=== PATIENT | female | born 1975 | race Caucasian/White ===

== ENCOUNTER 2019-01-09 16:22 | Emergency (ER) | payer MEDICAID ==
[2019-01-09] MEDS ORDERED: Lidocaine 1% 10 ML MDV INJECT ONE (17:48)
[2019-01-09] MEDS ORDERED: Doxycycline 100 MG Cap PO ONE (18:17)
--- NOTE | 2019-01-09 18:17 | EDM.PDOC ---
ED HPI GENERAL MEDICAL PROBLEM - General Chief Complaint: Skin Complaint Stated Complaint: L THUMB INFECTION Time Seen by Provider: 01/09/19 17:21 Source of Information: Reports: Patient History Limitations: Reports: No Limitations - History of Present Illness INITIAL COMMENTS - FREE TEXT/NARRATIVE: 43 yo F comes in today for infected L thumb. She states she has had a similar infection in the past with another finger, which ended up being positive for MRSA and she had to be on 3 months of antibiotics. She doesn't remember injuring this finger, the infection was random. It is located on the lateral aspect of the finger, right next to the finger nail. She states she feels a lot of pain and pressure that radiates around the thumb bilaterally. She also c/o F/ C, N/V/D. She denies LISA, SOB, chest pain, abdominal pain or any other symptoms at this time. Left Finger-Thumb Pain Score (Numeric/FACES): 7 - Related Data Allergies Allergy/AdvReac Type Severity Reaction Status Date / Time droperidol Allergy Cannot Verified 01/09/19 16:35 Remember morphine Allergy Cannot Verified 01/09/19 16:35 Remember prochlorperazine Allergy Anxiety Verified 01/09/19 16:35 [From Compazine] Sulfa (Sulfonamide Allergy Cannot Verified 01/09/19 16:35 Antibiotics) Remember Home Meds: Home Meds ClonazePAM [KlonoPIN] 1 tab PO ASDIRECTED PRN 01/09/19 [History] Doxycycline [Vibramycin] 100 mg PO BID 10 Days #20 cap 01/09/19 [Rx] Mirtazapine [Remeron] 7.5 mg PO DAILY 01/09/19 [History] Oxybutynin 5 mg PO DAILY 01/09/19 [History] Propranolol [Inderal] 20 mg PO DAILY 01/09/19 [History] Venlafaxine [Effexor] 75 mg PO BEDTIME 01/09/19 [History] Zolpidem Tartrate [Ambien] 10 mg PO BEDTIME PRN 01/09/19 [History] Past Medical History Musculoskeletal History: Reports: Osteoporosis Psychiatric History: Reports: Anxiety - Past Surgical History Female Surgical History: Reports: Hysterectomy Musculoskeletal Surgical History: Reports: Carpal Tunnel, Other (See Below) Other Musculoskeletal Surgeries/Procedures:: knee surgery, ankle surgery Social & Family History - Tobacco Use Smoking Status *Q: Current Every Day Smoker Years of Tobacco use: 30 Packs/Tins Daily: 0.2 - Caffeine Use Caffeine Use: Reports: Coffee - Recreational Drug Use Recreational Drug Use: No ED ROS GENERAL - Review of Systems Review Of Systems: ROS reveals no pertinent complaints other than HPI. ED EXAM, SKIN/RASH Exam: See Below Exam Limited By: No Limitations General Appearance: Alert Eye Exam: Bilateral Eye: EOMI, Normal Inspection, PERRL Ears: Normal External Exam, Hearing Grossly Normal Nose: Normal Inspection, Normal Mucosa, No Blood Head: Atraumatic, Normocephalic Neck: Normal Inspection, Supple, Non-Tender, Full Range of Motion Respiratory/Chest: No Respiratory Distress, Lungs Clear, Normal Breath Sounds, No Accessory Muscle Use, Chest Non-Tender Cardiovascular: Normal Peripheral Pulses, Regular Rate, Rhythm, No Edema, No Gallop, No JVD, No Murmur, No Rub Peripheral Pulses: 3+: Radial (L), Radial (R) GI/Abdominal: Normal Bowel Sounds, Soft, Non-Tender, No Organomegaly, No Distention, No Abnormal Bruit, No Mass Back Exam: Normal Inspection Extremities: Normal Range of Motion, No Pedal Edema, Increased Warmth (L thumb) , Redness (L thumb), Other (TTP L thumb ) Neurological: Alert, Oriented, CN II-XII Intact, Normal Cognition, Normal Gait, Normal Reflexes, No Motor/Sensory Deficits Skin: Warm, Dry, Erythema (L thumb ), Increased Warmth (L thumb), Other (Some purulence present under the skin) Location, Skin: Other (L thumb) Associated features: Warmth, Tenderness, Swelling, Inflammation ED SKIN PROCEDURES - I&D Site: L thumb Skin Prep: Providone-Iodine (Betadine) Local Anesthesia: Lidocaine: 1% Plain Area Incised With: Needle Drainage: Purulent, Bloody Sterile Dressing: Other (bandage w/ polysporin) Complications: No Course - Vital Signs Last Recorded V/S: Last Vital Signs Temp 100.2 F 01/09/19 16:30 Pulse 86 01/09/19 16:30 Resp 16 01/09/19 16:30 BP 164/102 H 01/09/19 16:30 Pulse Ox 99 01/09/19 16:30 - Orders/Labs/Meds Orders: Active Orders 24 hr Category Date Time Status CULTURE ANAEROBIC + SMEAR [RM] Stat Lab 01/09/19 18:00 Received Meds: Medications Discontinued Medications Generic Name Dose Route Start Last Admin Trade Name Cuco PRN Reason Stop Dose Admin Doxycycline Hyclate 200 mg 01/09/19 18:17 01/09/19 18:28 Vibramycin PO 01/09/19 18:18 200 mg ONETIME ONE Administration Lidocaine HCl 10 ml 01/09/19 17:48 01/09/19 17:51 Xylocaine 1% INJECT 01/09/19 17:49 10 ml ONETIME ONE Administration Departure - Departure Time of Disposition: 18:17 Disposition: Home, Self-Care 01 Condition: Good Clinical Impression: Paronychia of finger of left hand - Discharge Information *PRESCRIPTION DRUG MONITORING PROGRAM REVIEWED*: Not Applicable *COPY OF PRESCRIPTION DRUG MONITORING REPORT IN PATIENT IAD: Not Applicable Prescriptions: Doxycycline [Vibramycin] 100 mg PO BID 10 Days #20 cap Instructions: Paronychia, [id number] Referrals: PCP,Not In Area [Primary Care Provider] - Forms: ED Department Discharge Additional Instructions: You were seen in the ED today for infection of your L thumb. Your wound was drained and you were started on Doxycycline. Take 1 tab twice per day x 10 days for coverage of MRSA and infection. Soak as needed and try to massage out the exudate as you can. Use bandage with polysporin as needed. Follow up with your primary care provider. Please return to ED if new or worsening of symptoms. - My Orders Last 24 Hours: My Active Orders 01/09/19 18:00 CULTURE ANAEROBIC + SMEAR [RM] Stat - Assessment/Plan Last 24 Hours: My Active Orders 01/09/19 18:00 CULTURE ANAEROBIC + SMEAR [RM] Stat
== END 2019-01-09 18:32 | disposition home or self-care (01) ==
LOC: JD.ED 16:22
DX: L03.012 Cellulitis of left finger (principal); F41.9 Anxiety disorder, unspecified; F17.210 Nicotine dependence, cigarettes, uncomplicated; Z79.899 Other long term (current) drug therapy; Z90.710 Acquired absence of both cervix and uterus; Z88.5 Allergy status to narcotic agent; Z88.2 Allergy status to sulfonamides; Z88.8 Allergy status to other drugs, medicaments and biological substances
CPT/HCPCS: 10060; 87075; 87205; 99283; A9270; J2001; 87186